=== PATIENT | female | born 1945 | race Caucasian/White ===

== ENCOUNTER 2016-08-10 06:35 | Inpatient (IN) | payer BC, OTHER ==
--- NOTE | ~2016-08-10 | OP ---
Record Of Operation [facility] [address] [place]. [address] NAME: TARAS BENJAMIN : 41 STATUS : ADM IN [facility]#: [id number] AGE: 70 ADM/REG DATE : 08/10/16 MR#: [id number] REPORT SERV DATE: 08/15/16 DICTATED BY: AISHA WELDON DATE: 08/14/16 REPORT STATUS : Draft TRANSCRIBED BY: MODL DATE: 08/14/16 DATE OF PROCEDURE: 08/14/2016 PREOPERATIVE DIAGNOSES: 1. Coronary artery disease with angina. 2. Aortic valve stenosis. 3. Non-ST elevation myocardial infarction. 4. Type 2 insulin-dependent diabetes mellitus. 5. Hypertension. 6. Hyperlipidemia. 7. Obesity, morbid (body mass index greater than 35). 8. Pulmonary hypertension. POSTOPERATIVE DIAGNOSES: 1. Coronary artery disease with angina. 2. Aortic valve stenosis. 3. Non-ST elevation myocardial infarction. 4. Type 2 insulin-dependent diabetes mellitus. 5. Hypertension. 6. Hyperlipidemia. 7. Obesity, morbid (body mass index greater than 35). 8. Pulmonary hypertension. PROCEDURES PERFORMED: 1. Urgent coronary artery bypass grafting x4, left internal mammary artery placed to the left anterior descending, reverse saphenous vein graft placed to the first diagonal, reverse saphenous vein graft placed to the first obtuse marginal, reverse saphenous vein graft placed to the posterolateral branch vessel. 2. Aortic valve replacement using a 21 mm pericardial valve (Trifecta, [place] Miki). 3. Endoscopic vein harvest of the saphenous vein from the right leg. 4. Transesophageal echocardiography. SURGEON: Aisha Weldon M.D. ASSISTANTS: Federico Simmons and Pedro Cardoso. ANESTHESIA: General with Dr. Maharaj. DECATOR OPERATOR: Gamaliel Crane M.D. PRIMARY CARE: Dr. Jose Evans. INDICATIONS: This is a 70-year-old obese, hypertensive female with coronary artery disease, known and diabetes mellitus. She has been cathed in the past, diagnosed with two-vessel coronary disease and managed medically. She has been having recurrent episodes of chest discomfort and unstable like anginal symptoms. She represented to [facility] with Record Of Operation [place] [id number] [place] [place]. [address] NAME: TARAS BENJAMIN : 41 STATUS : ADM IN PAT#: [id number] AGE: 70 ADM/REG DATE : 08/10/16 MR#: [id number] REPORT SERV DATE: 08/15/16 DICTATED BY: AISHA WELDON DATE: 08/14/16 REPORT STATUS : Draft TRANSCRIBED BY: CALIN DATE: 08/14/[address] abnormalities[address] Troponin was elevated and she was admitted to the hospital with a non-ST elevation myocardial infarction. She has a previous history of myocardial infarction in 2016. She was transferred to [facility] and underwent a cardiac catheterization demonstrating significant three-vessel coronary artery disease. Echocardiography demonstrated preserved ventricular function with an ejection fraction of 50%. She did have moderate aortic valve stenosis with insufficiency and mild mitral valve insufficiency. We were asked to see the patient for possible urgent coronary bypass grafting and consideration for aortic valve replacement. We discussed this operation at length with the patient and her family, and after discussion of the operations, its indication, and risks, they wished to proceed. STS predicted mortality of 6%, predicted morbidity mortality of 37% were shared with the family. FINDINGS AT OPERATION: 1. Cross-clamp 132 minutes, total pump time 150 minutes. 2. The LAD was 1.75 mm heavily diseased vessel. A 2.5 mm WANG was anastomosed to it with good runoff. 3. The first diagonal was 1.5 mm and mildly diseased. A 3.5 mm RSVG was anastomosed to it with fair runoff. This was a small target. 4. The first obtuse marginal was 1.75 mm and moderately diseased. A 4 mm RSVG was anastomosed to it with good runoff. 5. The posterolateral branch vessel was 1.5 mm and mildly diseased. A 3.5 mm RSVG was anastomosed to it with good runoff. 6. The vein quality was good and all grafts had good Doppler signal at the end of the case. 7. The aortic valve had three leaflets that were heavily calcified. Coronary anatomy was normal. There was no aortic root dilatation. 8. A 21-mm Trifecta pericardial valve was implanted. A 15 Cor-Knots were used to secure the valve in place. 9. KAEL at the end of the procedure demonstrated good ventricular function. The aortic valve prosthesis was well seated without perivalvular leak, and there was mild mitral valve insufficiency. Pulmonary artery pressures were noted to be elevated in the range of 50-60 mmHg, both before procedure and after procedure. Pathologic specimens include aortic valve leaflets. DESCRIPTION OF PROCEDURE: The patient was brought to the operating suite where general anesthesia was induced and airway secured with an endotracheal tube. Lines secured by Anesthesia, and Petersen catheter was placed. The patient's chest, abdomen, groin, and legs prepped with Hibiclens and ChloraPrep and draped with Ioban sterile sheets. KAEL probe was placed by Anesthesia and examination carried out as discussed above. The saphenous vein was harvested from the right leg using endoscopic technique. Briefly, the vein was cut directly down upon through a 2 cm incision placed at the medial aspect of the right knee. Then, using VasoView trocars, the vessel was dissected from the surrounding subcutaneous tissue and fat. The side branches were identified, ligated, divided with cautery. Once adequate length of vein had been dissected, a counter incision was made up in the groin and in the lower leg. The vein was ligated, divided, and brought through the knee incision. The vein quality was good. The leg was made hemostatic, closed in layers with Record Of Operation [facility] [address] [place]. [address] NAME: TARAS BENJAMIN : 41 STATUS : ADM IN [facility]#: [id number] AGE: 70 ADM/REG DATE : 08/10/16 MR#: [id number] REPORT SERV DATE: 08/15/16 DICTATED BY: AISHA WELDON DATE: 08/14/16 REPORT STATUS : Draft TRANSCRIBED BY: MODL DATE: 08/14/16 absorbable suture, and skin closed in subcuticular fashion. A midline sternal incision was made and the sternum opened with saw. The left hemithorax was elevated and the endothoracic fascia was incised. Side branch of the TODD were clipped and divided. Once the TODD was completely dissected, the patient was anticoagulated with heparin and chest tube placed in the left pleural cavity. The TODD was clipped and divided distally. There was good flow through the TODD and its pedicle was infiltrated with papaverine. Next, the Dwain retractor was placed and the pericardium was opened from the innominate vein, and the diaphragm was T'd and tacked to side of the chest wall. Cannulation pursestring sutures were placed and cannulation was carried out in a routine manner. A retrograde cardioplegia cannula was placed in the coronary sinus. When all was in readiness, the patient was placed on cardiopulmonary bypass. The distal anastomoses were marked out on the heart as described in the findings. Then, a heart support was placed. The aorta was crossclamped and an initial dose of cold blood cardioplegia solution was given in a combination of antegrade and retrograde fashion, and then in a 20- to 25-minute intervals during the remainder of the cross-clamp period. Following the first dose of cardioplegia, the heart was positioned for the obtuse marginal graft. Arteriotomy was made. The vein graft was trimmed and anastomosed to it with 7-0 Prolene. The vein graft was measured back to the left side of the ascending aorta where it was divided. We then positioned the heart for the PDA graft. Arteriotomy was made. The vein graft was trimmed and anastomosed to it with 7-0 Prolene. This vein graft was then measured back to the right side of the ascending aorta where it was divided. Another dose of cardioplegia was given and we positioned the heart for the diagonal graft. Another arteriotomy was made and the vein graft was trimmed and anastomosed to it with 7-0 Prolene. This vein graft was measured back to the left side of the ascending aorta where it was divided. We then positioned the heart for the LAD graft. Arteriotomy was made in the mid LAD. The TODD was brought out of the left chest through a notch in the pericardium over the pulmonary artery. The TODD was opened and anastomosed to the LAD with running suture of 8-0 Prolene. The endothoracic fascia was tacked to the epicardium. Another dose of cardioplegia was given and the heart support was removed. We then turned our attention towards the aortic valve. LV vent was placed through the right superior pulmonary vein and directed into the left ventricle through the mitral valve and secured. A [id number]-[id number] aortotomy incision was made. The aortic valve was inspected. The aortic valve had three leaflets, they were heavily calcified and had restricted motion. The coronary anatomy was normal. The aortic valve leaflets were excised and the annulus debrided of all calcific material. We then irrigated the ascending aorta and left ventricle copiously with iced saline to remove any particulate matter. The valve was then sized and a 21 mm pericardial valve was selected, Saint Miki Trifecta. Interrupted pledgeted sutures of 2-0 Tycron were placed circumferentially about the aortic valve annulus in a horizontal mattress fashion. The pledgets were on the ventricular side. The sutures were passed through the sewing cuff of the valve prosthesis. This was lowered into position and each sutures individually secured and divided using a Cor-Knot device. A total of 15 Cor-Knots were utilized. Record Of Operation [place] [id number] [place]. [address] NAME: TARAS BENJAMIN : 41 STATUS : ADM IN PAT#: [id number] AGE: 70 ADM/REG DATE : 08/10/16 MR#: [id number] REPORT SERV DATE: 08/15/16 DICTATED BY: AISHA WELDON DATE: 08/14/16 REPORT STATUS : Draft TRANSCRIBED BY: CALIN DATE: 08/14/16 Warming was begun. The aortotomy incision was closed in a two-layer fashion with running pledgeted suture of 5-0 Prolene. Then, three 4.5 mm punch aortotomies were made in the proximal ends, all the vein grafts were anastomosed to these sites with running sutures of 6 0 Prolene. The patient was placed in Trendelenburg and a final dose of warm blood cardioplegia was given in a retrograde fashion. Ventricular and atrial pacing wires were placed. Following the last dose of cardioplegia and deairing of the aorta, an aortic cross clamp was removed. The distal and proximal anastomoses were inspected along with suture lines and made hemostatic. Doppler demonstrated good flow through the grafts. The heart was paced in an AV sequential fashion. Ventilation was begun. When the heart demonstrated good contractility, it was allowed to fill and eject. When deairing was completed, the LV vent was removed and these pursestring sutures were tied. The ascending aortic vent was likewise removed and these pursestring sutures tied and reinforced. The patient was then weaned from cardiopulmonary bypass with minimal inotropic support. The venous cannula was removed and these pursestring sutures tied. KAEL examination demonstrated good ventricular function. The aortic valve prosthesis was well seated. There was mild mitral valve insufficiency. Protamine was then administered by Anesthesia, and following a period of hemodynamic stability, the aortic cannula was removed and these pursestring sutures tied and reinforced. The patient continued to do well and chest irrigated copiously with saline. Meticulous hemostasis was obtained. Hemasorb was placed along the cut edge of the sternum. Once hemostasis was assured, the pericardium was draped over the anterior surface of heart and tacked into position. Doppler demonstrated good flow through the grafts following protamine administration. Then, the chest tubes were placed and sternum reapproximated with eight sternal wires. The clavipectoral fascia and linea alba closed with #1 Stratafix. The subcutaneous tissue was closed with Stratafix and the skin closed in a subcuticular fashion. The patient tolerated the procedure well. There were no complications. Sponge and needle counts were correct. DISPOSITION: The patient was left intubated, sedated, and transported to the Intensive Care Unit in stable condition. DAYRON/CALIN Aisha Weldon M.D. Record Of [address] [address] NAME: TARAS BENJAMIN : 41 STATUS : ADM IN [facility]#: [id number] AGE: 70 ADM/REG DATE : 08/10/16 MR#: [id number] REPORT SERV DATE: 08/15/16 DICTATED BY: AISHA WELDON DATE: 08/14/16 REPORT STATUS : Draft TRANSCRIBED BY: CALIN DATE: 08/14/16 / [id number] CC: MD Gamaliel Torres M.D.
--- NOTE | ~2016-08-10 | DS ---
Discharge Summary [facility] [address] [place]. [address] NAME: TARAS BENJAMIN : 41 STATUS : DIS IN PAT#: [id number] AGE: 70 ADM/REG DATE : 08/10/16 MR#: [id number] REPORT SERV DATE: 08/25/16 DICTATED BY: ADY HILARIO DATE: 08/24/16 REPORT STATUS : Draft TRANSCRIBED BY: MODL DATE: 08/24/16 ADMISSION DATE: 08/10/2016 DISCHARGE DATE: 08/24/2016 DISCHARGE DIAGNOSES: Include: 1. [id number] myocardial infarction, coronary artery disease, aortic stenosis. 2. Acute kidney injury on chronic kidney disease, stage III. Most recent creatinine, however 1.05. 3. Atrial fibrillation, on chronic Coumadin therapy with most recent INR 2.4. 4. Partial right jugular clot. 5. Hypernatremia, resolving, most recent sodium 146. 6. Urinary tract infection. Culture showing Enterococcus. 7. Diabetes type 2, most recent hemoglobin A1c 7.5. 8. Hyperlipidemia. 9. Hypertension. 10.Obesity. 11.History of esophageal strictures and dilations. 12.Some nausea and vomiting and difficulty swallowing. 13.Macroglossia, which is improving. DISCHARGE MEDICINES: Are as follows: Amoxicillin 875 mg p.o. twice a day, last dose tonight on 08/24/2016; vitamin C 1000 mg twice a day; aspirin 81 mg daily; Lipitor 40 mg at bedtime; amiodarone 200 mg daily; Coreg 25 mg twice a day; Senokot two tabs p.o. twice a day; Coumadin 1 mg daily, PT and INR in the a.m.; glipizide 10 mg twice a day; insulin 70/30, regular 20 units twice a day; nitroglycerin sublingual tablets p.r.n. for chest pain; Paxil 20 mg daily; Lasix 20 mg daily. HISTORY OF PRESENT ILLNESS: This is a 70-year-old female, who originally presented to [facility] Emergency Department with complaints of chest pressure. Please see the initial H and P of Mariela Irizarry nurse practitioner at [facility] on 08/08/2016. The patient was admitted to the Hospitalist Service for further evaluation and treatment. Please see the discharge summary by TYRONE Santo. The patient was transferred to [facility] for heart catheterization, and she underwent her heart catheterization on 08/10/2016, showing multivessel coronary disease and mild to moderate aortic stenosis. CONSULTANTS DURING THIS ADMISSION: Include cardiothoracic surgery, Agustin Weldon M.D. and nurse practitioner, Ej Abbott. She underwent coronary artery bypass grafting on 08/14/2016. CONTINUATION OF HOSPITAL COURSE: The patient was followed and plan was for the above described coronary artery bypass grafting and aortic valve replacement. Adjustments were made to her insulin regimen to help control her blood sugars and also adjustments were made to help control her blood pressures as well. She remained afebrile, was chest pain free and did undergo the above described surgery and was recovered in the CVICU postoperatively. She was eventually transferred out of the CVICU on 08/17/2016, and hospitalist care was assumed Discharge Summary [address] [address] NAME: TARAS BENJAMIN : 41 STATUS : DIS IN PAT#: [id number] AGE: 70 ADM/REG DATE : 08/10/16 MR#: [id number] REPORT SERV DATE: 08/25/16 DICTATED BY: ADY HILARIO DATE: 08/24/16 REPORT STATUS : Draft TRANSCRIBED BY: CALIN DATE: 08/24/16 by myself beginning on 08/18/2016. In the postoperative course, she did have a postoperative respiratory failure and was intubated through 08/14/2016 to 08/17/2016. I began seeing the patient as stated, on 08/18/2016, where we were continuing aggressive pulmonary toilet and mobilization efforts. She was feeling reasonable and recovering from her surgery. With a slight elevation in her white blood cells and a UA was checked, she did have some pyuria and culture was obtained. Adjustments were made to her Coreg dosage to help control her blood pressure. She was started on Coumadin therapy given her St. Miki aortic valve and lab work was followed closely. She was seen by Physical Therapy and evaluation was done, who recommended inpatient rehab at discharge. She has had good rate control of her AFib and with Coumadin dosing, her INR titrated up nicely. She was given antibiotic treatment for her urinary tract infection, will be completing that today. She has had some slight difficulty with her swallowing, which is more of a chronic issue given her esophageal strictures and both Physical Therapy and Speech Therapy will be following up with the patient after discharge at her facility in [place]. She continued to improve, was able to ambulate in the room, feeling okay, and was felt safe for discharge on 08/24/2016, with the above described medication regimen and she will follow up with Dr. Crane, compound coating machine offbearer 09/15/2016, and she was transferred to [facility] for continued rehab. She will also follow up with her primary care, Dr. Evans in 3 to 5 weeks and has a tentative appointment for 09/16/2016 scheduled. Questions were answered at bedside at length with the patient. Please note greater than 30 minutes was spent on this discharge for medication teaching, followup planning, and further disposition. CSC/MODL Ady Hilario NP / [id number] CC: Ruslan Campuzano FREDRICK S
--- NOTE | ~2016-08-10 | CN ---
Consultation Report [place] [id number] [facility] [place]. [address] NAME: TARAS BENJAMIN : 41 STATUS : REG REF PAT#: [id number] AGE: 70 ADM/REG DATE : 08/10/16 MR#: [id number] REPORT SERV DATE: 08/10/16 DICTATED BY: EJ SULLIVAN DATE: 08/10/16 REPORT STATUS : Draft TRANSCRIBED BY: MODL DATE: 08/10/16 CONSULTATION DATE OF CONSULTATION: 08/10/2016 REASON FOR CONSULTATION: Recent acute coronary syndrome, three-vessel coronary artery disease, consideration for coronary artery bypass grafting plus or minus aortic valve replacement. CHIEF COMPLAINT: "I had chest pain." HISTORY OF PRESENT ILLNESS: This is a 70-year-old female with known coronary artery disease, followed by Dr. Crane and treated medically since her myocardial infarction in January 2016. She has had some recent medication changes apparently by her nurse practitioner. She reports that over the last two weeks, she has had chest discomfort which she experiences of a heaviness in her chest and shortness of breath. She has reportedly had the symptoms over the last two weeks, and had worsening symptoms on Wednesday morning. She has been taking 1 to 3 nitroglycerin sublingual tablets and usually has relief of her pain within five minutes, but did not on Wednesday. She came to the emergency room and had abnormal EKG and elevated troponin I, was hospitalized and underwent further evaluation by Cardiology. This included coronary arteriogram today which showed significant flow-limiting three-vessel coronary artery disease. We are asked to see for possible coronary artery bypass grafting. Currently, she is pain free. She has been on Plavix. She has type 2 insulin-dependent diabetes mellitus and also has been suffering with which she calls enlarged tongue and dysphagia with reflux. She has had previous dilations over esophagus to address some of these problems. PRIOR MEDICAL HISTORY: 1. Hypertension. 2. Hyperlipidemia. 3. Prior myocardial infarction. 4. Coronary artery disease. 5. Type 2 insulin-dependent diabetes mellitus. 6. Back pain. 7. Esophageal stenosis. 8. Aortic stenosis/aortic insufficiency. 9. Cataracts. 10.Prior ovarian cancer with resection in 1983. PRIOR SURGICAL HISTORY: Significant for: 1. EGD with esophageal dilation. 2. Appendectomy. 3. Cholecystectomy. Consultation Report [place] [id number] [facility] [place]. [address] NAME: TARAS BENJAMIN : 41 STATUS : REG REF PAT#: [id number] AGE: 70 ADM/REG DATE : 08/10/16 MR#: [id number] REPORT SERV DATE: 08/10/16 DICTATED BY: EJ SULLIVAN DATE: 08/10/16 REPORT STATUS : Draft TRANSCRIBED BY: MODJayson DATE: 08/10/16 4. History of salpingo-oophorectomy. 5. Cataract excision. 6. Prior colonoscopy. 7. Prior coronary arteriogram. 8. Carpal tunnel release bilaterally. ALLERGIES: INCLUDE LISINOPRIL, WHICH CAUSES TONGUE SWELLING AND PAXIL, WHICH CAUSES HER TO HAVE EXTRAPYRAMIDAL SYMPTOMS. FAMILY HISTORY: Significant for coronary artery disease in her brother who had bypass surgery, father with a stroke, mother with cancer. SOCIAL HISTORY: She is for 52 years, resides near [facility] with her . She has secondhand smoke exposure for about 40 years. She denies use of alcohol or illicit drugs. MEDICATIONS: Include metoprolol, Plavix, aspirin, meloxicam, glipizide 70/30 insulin, sublingual nitroglycerin, Lasix, and prior use of Paxil, stopped due to side effects. REVIEW OF SYSTEMS: GENERAL: Negative for any recent weight change, fevers, chills, night sweats. ENT: Positive for wearing glasses, cataracts, negative for glaucoma. Positive for dysphagia, enlarge tongue, and EPS symptoms. NECK AND BACK: Positive for back pain. RESPIRATORY: Negative for COPD. Negative for wheezing. Negative for hemoptysis or shortness of breath. CV: Prior myocardial infarction, chest pain, and heart murmur. GI: Positive for "stomach problems", dysphagia, previous esophageal dilatations by Dr. Lakhani. : Negative. [employer]: As above. MUSCULOSKELETAL: Positive for back pain and arthritis. HEME/ONC: Positive for easy bruising since she has been on Plavix and aspirin, negative for free bleeding or blood clots. Positive for prior ovarian cancer with no recurrence. NEUROLOGIC: Negative for stroke or TIA. Otherwise, negative as above. PHYSICAL EXAMINATION: GENERAL: She is a pleasant, obese white female, in no acute distress. Her height is 160.02 cm, weight 91.626 kg. VITAL SIGNS: Blood pressure is 110/55, temperature 98.6, pulse 78 and regular, respirations 18, saturation 98% on 2 liters nasal cannula. HEENT: Normocephalic, atraumatic. Pupils equal, round, reactive to light and accommodation. Sclerae clear. Conjunctivae pink. No xanthelasma. Oral and buccal mucosa pink and moist. Tongue is full, and she has Mallampati class 4 airway. She has upper dentures. NECK: Supple. No restricted range of motion. No carotid bruits. No jugular venous Consultation Report [place] [id number] [facility] [place]. [address] NAME: TARAS BENJAMIN : 41 STATUS : REG REF PAT#: [id number] AGE: 70 ADM/REG DATE : 08/10/16 MR#: [id number] REPORT SERV DATE: 08/10/16 DICTATED BY: EJ SULLIVAN DATE: 08/10/16 REPORT STATUS : Draft TRANSCRIBED BY: CALIN DATE: 08/10/16 distention. CHEST: Clear to auscultation, no use of accessory muscles, no chest wall tenderness. She has mild thoracic kyphosis. No wheezes or adventitious breath sounds. CV: Regular rate and rhythm with aortic systolic murmur, chest palpable and symmetric central peripheral pulses. No clubbing. No cyanosis. ABDOMEN: Soft, obese, nontender with normoactive bowel sounds. No hepatosplenomegaly. /RECTAL: Declined. MUSCULOSKELETAL: Mild to moderate thoracic kyphosis. SKIN, HAIR, AND NAILS: No lesions, masses, or rashes. NEUROLOGIC: She is alert and oriented to day, date, place, and situation. Speech is clear and fluent. No focal deficits. DATA: Coronary arteriogram today shows significant flow-limiting disease in the distal right coronary artery, the proximal, the mid left anterior descending, diagonal branch, and obtuse marginal. Echocardiogram is currently pending for current ejection fraction. The prior echo showed moderate aortic stenosis. EKG shows a sinus rhythm with Q-waves in the septal leads, and ST-T wave changes in the anterior lateral leads and inferior leads. CURRENT LABORATORY DATA: Sodium is 144, potassium 4.3, chloride 109, CO2 of 29, BUN 27, creatinine 1.39. Her lipid profile shows total cholesterol elevated at 201, HDL is low at 38, LDL is 88, and triglycerides elevated at 377. Troponin I was elevated at 0.08. Her CBC is unremarkable. A1c is elevated at 7.3. IMPRESSION: Three-vessel flow-limiting coronary artery disease in a 70-year-old obese white female, diabetic with recent non-ST elevation myocardial infarction. We were asked to see for possible coronary artery bypass grafting, and possible aortic valve replacement depending on results of her echocardiography. We will do risk scoring after we obtain the results of her echocardiography. We appreciate the opportunity to participate in her care and we will follow. CASA/CALIN Ej Sullivan NShuP. / [id number] CC: Jade Yeager M.D.
[~2016-08-10 06:35] MED LIST: ALEVE220 MG PO; ASAB PO; B121000P IM/SC; CELEXA20 PO; CINNAMONPO PO; GLUCOTRO10 PO; HUMULIN SC; HYDROCHLOROT25 MG PO; ICY HOT16 % TOP; INSNOV7030 SC; INSULIN SC; L20 PO; LIPITOR40 PO; LOP100 PO; METOPROLOL 100 MG PO; MOBIC15 MG PO; NORV5 PO; NTG150 SL; OTC SINUS MED; PAX20 PO; PLAVIX PO; PRILOSEC40 MG PO; PROTONIX PO; QUESTRAN4 GM; REG PO; TOPXL100 PO; VITAMIN B-12 OTC PO; VITAMIN B-121000 MC1 SL; WELCHOL 625 MG625 MG PO; X5 PO
[2016-08-11 05:27] LABS: BASOPHILS 0.2 %; BASOPHILS ABSOLUTE 0.01 10/3/uL (0.0-0.16); EOSINOPHILS 1.1 %; EOSINOPHILS ABSOLUTE 0.07 10/3/uL (0.0-0.53); HEMATOCRIT 41.3 % (36.0-48.0); HEMOGLOBIN 13.2 g/dL (12.0-16.0); IMMATURE GRANULOCYTES 0.3 %; IMMATURE GRANULOCYTES ABSOLUTE 0.02 10/3/uL (0.0-0.11); LYMPHOCYTES 19.3 %; LYMPHOCYTES ABSOLUTE 1.18 10/3/uL (0.67-4.30); MEAN CORPUSCULAR HEMOGLOB 27.4 pg (26.0-34.0); MEAN CORPUSCULAR VOLUME 85.9 fL (80-100); MEAN PLATELET VOLUME 12.1 fL (9.2-13.0); MONOCYTES 7.9 %; MONOCYTES ABSOLUTE 0.48 10/3/uL (0.21-1.20); NEUTROPHILS 71.2 %; NEUTROPHILS ABSOLUTE 4.35 10/3/uL (2.02-8.40); PLATELET COUNT 128 10/3/uL (150-400); RBC DISTRIBUTION WIDTH 15.5 % (12.0-16.0); RED CELL COUNT 4.81 10/6/uL (4.0-5.6); WHITE BLOOD CELLS 6.1 10/3/uL (4.5-10.5)
[2016-08-11 05:28] LABS: MANUAL DIFF NO %
[2016-08-11 05:45] LABS: CALCIUM, SERUM 8.3 MG/DL (8.5-10.4); CHLORIDE, SERUM 106 MMOL/L (96-112); CO2 (CARBON DIOXIDE) 29 MMOL/L (24-34); CREATININE 1.28 MG/DL (0.55-1.02); GFR AFRICAN AMERICAN 48 ML/MIN (>=60); GFR NON AFRICAN AMERICAN 42 ML/MIN (>=60); GLUCOSE, SERUM 199 MG/DL (60-99); POTASSIUM, SERUM 4.2 MMOL/L (3.5-5.3); SODIUM, SERUM 142 MMOL/L (135-148)
[2016-08-11 05:52] LABS: BUN (BLOOD UREA NITROGEN) 23 MG/DL (6-23)
[2016-08-12 04:16] LABS: BASOPHILS 0.2 %; BASOPHILS ABSOLUTE 0.01 10/3/uL (0.0-0.16); EOSINOPHILS 3.6 %; EOSINOPHILS ABSOLUTE 0.18 10/3/uL (0.0-0.53); HEMATOCRIT 37.3 % (36.0-48.0); IMMATURE GRANULOCYTES 0.4 %; IMMATURE GRANULOCYTES ABSOLUTE 0.02 10/3/uL (0.0-0.11); LYMPHOCYTES 22.2 %; LYMPHOCYTES ABSOLUTE 1.12 10/3/uL (0.67-4.30); MEAN CORPUS HGB CONC 32.2 g/dL (32.0-36.0); MEAN CORPUSCULAR HEMOGLOB 27.3 pg (26.0-34.0); MEAN CORPUSCULAR VOLUME 84.8 fL (80-100); MEAN PLATELET VOLUME 11.7 fL (9.2-13.0); MONOCYTES 6.9 %; MONOCYTES ABSOLUTE 0.35 10/3/uL (0.21-1.20); NEUTROPHILS 66.7 %; NEUTROPHILS ABSOLUTE 3.37 10/3/uL (2.02-8.40); PLATELET COUNT 95 10/3/uL (150-400); RBC DISTRIBUTION WIDTH 15.3 % (12.0-16.0); WHITE BLOOD CELLS 5.1 10/3/uL (4.5-10.5)
[2016-08-12 04:18] LABS: MANUAL DIFF NO %
[2016-08-12 12:11] LABS: ALBUMIN 2.6 G/DL (3.5-5.0); CALCIUM, SERUM 8.2 MG/DL (8.5-10.4); CHLORIDE, SERUM 103 MMOL/L (96-112); CO2 (CARBON DIOXIDE) 32 MMOL/L (24-34); CREATININE 1.19 MG/DL (0.55-1.02); FREE T4 0.89 NG/DL (0.76-1.46); GFR AFRICAN AMERICAN 53 ML/MIN (>=60); GFR NON AFRICAN AMERICAN 46 ML/MIN (>=60); GLUCOSE, SERUM 179 MG/DL (60-99); POTASSIUM, SERUM 3.7 MMOL/L (3.5-5.3); SODIUM, SERUM 141 MMOL/L (135-148)
[2016-08-12 12:12] LABS: BUN (BLOOD UREA NITROGEN) 28 MG/DL (6-23)
[2016-08-12 16:42] LABS: BASOPHILS 0.2 %; BASOPHILS ABSOLUTE 0.01 10/3/uL (0.0-0.16); EOSINOPHILS 2.8 %; EOSINOPHILS ABSOLUTE 0.15 10/3/uL (0.0-0.53); HEMATOCRIT 37.6 % (36.0-48.0); HEMOGLOBIN 12.1 g/dL (12.0-16.0); IMMATURE GRANULOCYTES 0.2 %; IMMATURE GRANULOCYTES ABSOLUTE 0.01 10/3/uL (0.0-0.11); LYMPHOCYTES 18.2 %; LYMPHOCYTES ABSOLUTE 0.99 10/3/uL (0.67-4.30); MANUAL DIFF NO %; MEAN CORPUS HGB CONC 32.2 g/dL (32.0-36.0); MEAN CORPUSCULAR HEMOGLOB 27.4 pg (26.0-34.0); MEAN CORPUSCULAR VOLUME 85.1 fL (80-100); MEAN PLATELET VOLUME 11.9 fL (9.2-13.0); MONOCYTES 6.6 %; MONOCYTES ABSOLUTE 0.36 10/3/uL (0.21-1.20); NEUTROPHILS ABSOLUTE 3.92 10/3/uL (2.02-8.40); PLATELET COUNT 145 10/3/uL (150-400); RBC DISTRIBUTION WIDTH 15.4 % (12.0-16.0); RED CELL COUNT 4.42 10/6/uL (4.0-5.6); WHITE BLOOD CELLS 5.4 10/3/uL (4.5-10.5)
[2016-08-12 16:57] LABS: ALBUMIN 2.8 G/DL (3.5-5.0); BUN (BLOOD UREA NITROGEN) 29 MG/DL (6-23); CALCIUM, SERUM 8.8 MG/DL (8.5-10.4); CHLORIDE, SERUM 105 MMOL/L (96-112); CO2 (CARBON DIOXIDE) 32 MMOL/L (24-34); CREATININE 1.19 MG/DL (0.55-1.02); GFR AFRICAN AMERICAN 53 ML/MIN (>=60); GFR NON AFRICAN AMERICAN 46 ML/MIN (>=60); GLUCOSE, SERUM 161 MG/DL (60-99); PHOSPHORUS, SERUM 2.1 MG/DL (2.5-4.5); POTASSIUM, SERUM 3.9 MMOL/L (3.5-5.3); SODIUM, SERUM 144 MMOL/L (135-148)
[2016-08-13 14:23] LABS: BASOPHILS 0.2 %; BASOPHILS ABSOLUTE 0.01 10/3/uL (0.0-0.16); EOSINOPHILS 3.5 %; EOSINOPHILS ABSOLUTE 0.17 10/3/uL (0.0-0.53); HEMATOCRIT 37.2 % (36.0-48.0); HEMOGLOBIN 11.9 g/dL (12.0-16.0); IMMATURE GRANULOCYTES 0.2 %; IMMATURE GRANULOCYTES ABSOLUTE 0.01 10/3/uL (0.0-0.11); LYMPHOCYTES 18.1 %; LYMPHOCYTES ABSOLUTE 0.87 10/3/uL (0.67-4.30); MEAN CORPUSCULAR HEMOGLOB 27.3 pg (26.0-34.0); MEAN CORPUSCULAR VOLUME 85.3 fL (80-100); MEAN PLATELET VOLUME 11.6 fL (9.2-13.0); MONOCYTES 6.9 %; MONOCYTES ABSOLUTE 0.33 10/3/uL (0.21-1.20); NEUTROPHILS 71.1 %; NEUTROPHILS ABSOLUTE 3.41 10/3/uL (2.02-8.40); PLATELET COUNT 151 10/3/uL (150-400); RBC DISTRIBUTION WIDTH 15.2 % (12.0-16.0); RED CELL COUNT 4.36 10/6/uL (4.0-5.6); WHITE BLOOD CELLS 4.8 10/3/uL (4.5-10.5)
[2016-08-13 14:24] LABS: MANUAL DIFF NO %
[2016-08-14 04:54] LABS: BASOPHILS 0.2 %; BASOPHILS ABSOLUTE 0.01 10/3/uL (0.0-0.16); EOSINOPHILS 3.1 %; EOSINOPHILS ABSOLUTE 0.14 10/3/uL (0.0-0.53); HEMATOCRIT 37.9 % (36.0-48.0); HEMOGLOBIN 12.3 g/dL (12.0-16.0); IMMATURE GRANULOCYTES 0.4 %; IMMATURE GRANULOCYTES ABSOLUTE 0.02 10/3/uL (0.0-0.11); LYMPHOCYTES 24.8 %; LYMPHOCYTES ABSOLUTE 1.14 10/3/uL (0.67-4.30); MEAN CORPUS HGB CONC 32.5 g/dL (32.0-36.0); MEAN CORPUSCULAR HEMOGLOB 27.4 pg (26.0-34.0); MEAN CORPUSCULAR VOLUME 84.4 fL (80-100); MEAN PLATELET VOLUME 11.9 fL (9.2-13.0); MONOCYTES 8.3 %; MONOCYTES ABSOLUTE 0.38 10/3/uL (0.21-1.20); NEUTROPHILS 63.2 %; PLATELET COUNT 164 10/3/uL (150-400); RED CELL COUNT 4.49 10/6/uL (4.0-5.6); WHITE BLOOD CELLS 4.6 10/3/uL (4.5-10.5)
[2016-08-14 05:04] LABS: % IRON SAT 18 % (20-50); A/G RATIO 0.7 (0.7-1.9); ALBUMIN 2.7 G/DL (3.5-5.0); ALKALINE PHOSPHATASE 68 U/L (45-117); BUN (BLOOD UREA NITROGEN) 30 MG/DL (6-23); CALCIUM, SERUM 8.7 MG/DL (8.5-10.4); CHLORIDE, SERUM 106 MMOL/L (96-112); CO2 (CARBON DIOXIDE) 31 MMOL/L (24-34); CREATININE 1.31 MG/DL (0.55-1.02); GFR AFRICAN AMERICAN 47 ML/MIN (>=60); GFR NON AFRICAN AMERICAN 41 ML/MIN (>=60); GLOBULIN 3.9 G/DL (2.5-4.1); GLUCOSE, SERUM 169 MG/DL (60-99); IRON BINDING CAPACITY 272 MCG/DL (225-410); IRON, SERUM 49 MCG/DL (35-150); POTASSIUM, SERUM 3.8 MMOL/L (3.5-5.3); SGOT(AST) 19 U/L (5-40); SGPT(ALT) 21 U/L (5-65); SODIUM, SERUM 146 MMOL/L (135-148); TOTAL BILIRUBIN 0.4 MG/DL (0-1.2); TOTAL PROTEIN 6.6 G/DL (6.0-8.5)
[2016-08-14 05:09] LABS: MANUAL DIFF NO %
[2016-08-14 05:16] LABS: INTERNATIONAL NORMAL RATI 1.1 UNITS (-); PROTIME (NOT ORD) 13.8 SEC (12.0-14.5)
[2016-08-14 07:23] LABS: TEG - RATE 6.3 MIN (5.0-10.0)
[2016-08-14 07:24] LABS: MAX AMP (ADP) 45.4 MM (35-68); TEG - ANGLE 63.7 DEG (53-72); TEG - COAGULATION INDEX -0.3 (-3 TO 3); TEG - MAXIMUM AMPLITUDE 61.2 MM (50-70); TEG PLAVIX/EFFIENT/TICLID(ADP) 32.5 % INHIB (< 40)
[2016-08-14 16:06] LABS: BE (BASE EXCESS) -3.8 MEQ/L (0 +/- 2.5); CARBOXYHEMOGLOBIN 0.4 % (0-3); HCO3 (ACTUAL BICARBONATE) 22.8 MEQ/L (23-27); HEMOBLOGIN CONTENT 13.1 G/DL (12-16); INSTRUMENT SERIAL # 11843; METHEMOGLOBIN 0.6 % (0-3); MODE SIMV; OPERATOR ID 35188; PCO2 (CO2 TENSION) 47 MMHG (35-45); PO2 (O2 TENSION) 135 MMHG (79-93); SAMPLE Arterial; TIDAL VOLUME 650 ML
[2016-08-14 16:44] LABS: HEMATOCRIT 36.8 % (36.0-48.0); HEMOGLOBIN 12.2 g/dL (12.0-16.0); PLATELET COUNT 125 10/3/uL (150-400)
[2016-08-14 16:52] LABS: INTERNATIONAL NORMAL RATI 1.6 UNITS (-); PARTIAL THROMBO TIME 36.2 SEC (22.5-37.2)
[2016-08-14 16:53] LABS: PROTIME (NOT ORD) 18.5 SEC (12.0-14.5)
[2016-08-14 16:55] LABS: BUN (BLOOD UREA NITROGEN) 28 MG/DL (6-23); CALCIUM, SERUM 9.2 MG/DL (8.5-10.4); CHLORIDE, SERUM 112 MMOL/L (96-112); CO2 (CARBON DIOXIDE) 25 MMOL/L (24-34); CREATININE 1.52 MG/DL (0.55-1.02); GFR AFRICAN AMERICAN 39 ML/MIN (>=60); GFR NON AFRICAN AMERICAN 34 ML/MIN (>=60); GLUCOSE, SERUM 122 MG/DL (60-99); POTASSIUM, SERUM 4.2 MMOL/L (3.5-5.3); SODIUM, SERUM 149 MMOL/L (135-148)
[2016-08-14 20:31] LABS: BASOPHILS 0.1 %; BASOPHILS ABSOLUTE 0.01 10/3/uL (0.0-0.16); EOSINOPHILS 0.1 %; EOSINOPHILS ABSOLUTE 0.01 10/3/uL (0.0-0.53); HEMATOCRIT 33.2 % (36.0-48.0); HEMOGLOBIN 10.9 g/dL (12.0-16.0); IMMATURE GRANULOCYTES 0.1 %; IMMATURE GRANULOCYTES ABSOLUTE 0.01 10/3/uL (0.0-0.11); LYMPHOCYTES 8.8 %; LYMPHOCYTES ABSOLUTE 0.64 10/3/uL (0.67-4.30); MEAN CORPUS HGB CONC 32.8 g/dL (32.0-36.0); MEAN CORPUSCULAR HEMOGLOB 27.5 pg (26.0-34.0); MEAN CORPUSCULAR VOLUME 83.6 fL (80-100); MEAN PLATELET VOLUME 11.6 fL (9.2-13.0); MONOCYTES 4.3 %; MONOCYTES ABSOLUTE 0.31 10/3/uL (0.21-1.20); NEUTROPHILS 86.6 %; NEUTROPHILS ABSOLUTE 6.31 10/3/uL (2.02-8.40); PLATELET COUNT 93 10/3/uL (150-400); RBC DISTRIBUTION WIDTH 15.3 % (12.0-16.0); RED CELL COUNT 3.97 10/6/uL (4.0-5.6)
[2016-08-14 20:32] LABS: MANUAL DIFF NO %; WHITE BLOOD CELLS 7.3 10/3/uL (4.5-10.5)
[2016-08-14 20:42] LABS: BUN (BLOOD UREA NITROGEN) 28 MG/DL (6-23); CALCIUM, SERUM 8.7 MG/DL (8.5-10.4); CHLORIDE, SERUM 114 MMOL/L (96-112); CO2 (CARBON DIOXIDE) 24 MMOL/L (24-34); CREATININE 1.62 MG/DL (0.55-1.02); GFR AFRICAN AMERICAN 36 ML/MIN (>=60); GFR NON AFRICAN AMERICAN 31 ML/MIN (>=60); GLUCOSE, SERUM 126 MG/DL (60-99); POTASSIUM, SERUM 4.1 MMOL/L (3.5-5.3); SODIUM, SERUM 149 MMOL/L (135-148)
[2016-08-15 02:32] LABS: BASOPHILS 0 %; EOSINOPHILS 0 %; HEMATOCRIT 31.7 % (36.0-48.0); HEMOGLOBIN 10.6 g/dL (12.0-16.0); IMMATURE GRANULOCYTES 0.2 %; IMMATURE GRANULOCYTES ABSOLUTE 0.01 10/3/uL (0.0-0.11); LYMPHOCYTES 7.8 %; LYMPHOCYTES ABSOLUTE 0.46 10/3/uL (0.67-4.30); MANUAL DIFF NO %; MEAN CORPUS HGB CONC 33.4 g/dL (32.0-36.0); MEAN CORPUSCULAR HEMOGLOB 27.8 pg (26.0-34.0); MEAN CORPUSCULAR VOLUME 83.2 fL (80-100); MONOCYTES 4.4 %; MONOCYTES ABSOLUTE 0.26 10/3/uL (0.21-1.20); NEUTROPHILS 87.6 %; NEUTROPHILS ABSOLUTE 5.18 10/3/uL (2.02-8.40); PLATELET COUNT 78 10/3/uL (150-400); RBC DISTRIBUTION WIDTH 15.4 % (12.0-16.0); RED CELL COUNT 3.81 10/6/uL (4.0-5.6); WHITE BLOOD CELLS 5.9 10/3/uL (4.5-10.5)
[2016-08-15 02:38] LABS: INTERNATIONAL NORMAL RATI 1.3 UNITS (-); PROTIME (NOT ORD) 15.8 SEC (12.0-14.5)
[2016-08-15 02:43] LABS: BUN (BLOOD UREA NITROGEN) 28 MG/DL (6-23); CALCIUM, SERUM 8.2 MG/DL (8.5-10.4); CHLORIDE, SERUM 115 MMOL/L (96-112); CO2 (CARBON DIOXIDE) 23 MMOL/L (24-34); CREATININE 1.56 MG/DL (0.55-1.02); GFR AFRICAN AMERICAN 38 ML/MIN (>=60); GFR NON AFRICAN AMERICAN 33 ML/MIN (>=60); POTASSIUM, SERUM 4.2 MMOL/L (3.5-5.3); SODIUM, SERUM 150 MMOL/L (135-148)
[2016-08-15 02:44] LABS: GLUCOSE, SERUM 85 MG/DL (60-99)
[2016-08-15 02:53] LABS: PLATELET ESTIMATE DEC (ADEQUATE); RBC MORPHOLOGY NORM (NORMAL)
[2016-08-15 04:00] LABS: PARTIAL THROMBO TIME 33.2 SEC (22.5-37.2)
[2016-08-15 16:22] LABS: HEMATOCRIT 31.5 % (36.0-48.0); HEMOGLOBIN 10.4 g/dL (12.0-16.0)
[2016-08-16 03:40] LABS: BASOPHILS 0 %; EOSINOPHILS 0 %; HEMATOCRIT 30.9 % (36.0-48.0); HEMOGLOBIN 10.2 g/dL (12.0-16.0); IMMATURE GRANULOCYTES 0.3 %; IMMATURE GRANULOCYTES ABSOLUTE 0.02 10/3/uL (0.0-0.11); LYMPHOCYTES 5.7 %; LYMPHOCYTES ABSOLUTE 0.38 10/3/uL (0.67-4.30); MEAN CORPUSCULAR HEMOGLOB 27.8 pg (26.0-34.0); MEAN CORPUSCULAR VOLUME 84.2 fL (80-100); MEAN PLATELET VOLUME 11.8 fL (9.2-13.0); MONOCYTES 7.3 %; MONOCYTES ABSOLUTE 0.49 10/3/uL (0.21-1.20); NEUTROPHILS 86.7 %; NEUTROPHILS ABSOLUTE 5.78 10/3/uL (2.02-8.40); PLATELET COUNT 80 10/3/uL (150-400); RBC DISTRIBUTION WIDTH 15.9 % (12.0-16.0); RED CELL COUNT 3.67 10/6/uL (4.0-5.6); WHITE BLOOD CELLS 6.7 10/3/uL (4.5-10.5)
[2016-08-16 03:48] LABS: BUN (BLOOD UREA NITROGEN) 31 MG/DL (6-23); CHLORIDE, SERUM 116 MMOL/L (96-112); CO2 (CARBON DIOXIDE) 23 MMOL/L (24-34); GFR AFRICAN AMERICAN 43 ML/MIN (>=60); GFR NON AFRICAN AMERICAN 37 ML/MIN (>=60); SODIUM, SERUM 149 MMOL/L (135-148)
[2016-08-16 03:49] LABS: GLUCOSE, SERUM 127 MG/DL (60-99); MANUAL DIFF NO %; POTASSIUM, SERUM 4.4 MMOL/L (3.5-5.3)
[2016-08-16 08:01] LABS: PHOSPHORUS, SERUM 3.8 MG/DL (2.5-4.5)
[2016-08-16 10:46] LABS: OSMOLALITY, URINE 518 MOSM/KG (50-1200)
[2016-08-16 10:47] LABS: SODIUM, URINE 71 MEQ/L
[2016-08-16 16:00] LABS: HEMATOCRIT 28.7 % (36.0-48.0); HEMOGLOBIN 9.4 g/dL (12.0-16.0)
[2016-08-16 16:09] LABS: POTASSIUM, SERUM 4.6 MMOL/L (3.5-5.3)
[2016-08-16 23:40] LABS: HEMATOCRIT 30.3 % (36.0-48.0); HEMOGLOBIN 9.6 g/dL (12.0-16.0)
[2016-08-16 23:50] LABS: CALCIUM, SERUM 7.6 MG/DL (8.5-10.4); CHLORIDE, SERUM 116 MMOL/L (96-112); CO2 (CARBON DIOXIDE) 25 MMOL/L (24-34); CREATININE 1.61 MG/DL (0.55-1.02); GFR AFRICAN AMERICAN 37 ML/MIN (>=60); GFR NON AFRICAN AMERICAN 32 ML/MIN (>=60); GLUCOSE, SERUM 118 MG/DL (60-99); POTASSIUM, SERUM 4.6 MMOL/L (3.5-5.3); SODIUM, SERUM 149 MMOL/L (135-148)
[2016-08-16 23:51] LABS: BUN (BLOOD UREA NITROGEN) 43 MG/DL (6-23)
[2016-08-17 03:57] LABS: BASOPHILS 0 %; EOSINOPHILS 0 %; HEMATOCRIT 29.4 % (36.0-48.0); HEMOGLOBIN 9.5 g/dL (12.0-16.0); IMMATURE GRANULOCYTES 0.5 %; IMMATURE GRANULOCYTES ABSOLUTE 0.04 10/3/uL (0.0-0.11); LYMPHOCYTES 8.7 %; LYMPHOCYTES ABSOLUTE 0.66 10/3/uL (0.67-4.30); MEAN CORPUS HGB CONC 32.3 g/dL (32.0-36.0); MEAN CORPUSCULAR HEMOGLOB 27.4 pg (26.0-34.0); MEAN CORPUSCULAR VOLUME 84.7 fL (80-100); MONOCYTES 8.2 %; MONOCYTES ABSOLUTE 0.62 10/3/uL (0.21-1.20); NEUTROPHILS 82.6 %; NEUTROPHILS ABSOLUTE 6.23 10/3/uL (2.02-8.40); PLATELET COUNT 90 10/3/uL (150-400); RED CELL COUNT 3.47 10/6/uL (4.0-5.6); WHITE BLOOD CELLS 7.6 10/3/uL (4.5-10.5)
[2016-08-17 03:58] LABS: MANUAL DIFF NO %
[2016-08-17 04:13] LABS: ALBUMIN 2.9 G/DL (3.5-5.0); BUN (BLOOD UREA NITROGEN) 41 MG/DL (6-23); CALCIUM, SERUM 7.7 MG/DL (8.5-10.4); CHLORIDE, SERUM 115 MMOL/L (96-112); CO2 (CARBON DIOXIDE) 22 MMOL/L (24-34); GFR AFRICAN AMERICAN 40 ML/MIN (>=60); GFR NON AFRICAN AMERICAN 34 ML/MIN (>=60); GLUCOSE, SERUM 120 MG/DL (60-99); PHOSPHORUS, SERUM 3.9 MG/DL (2.5-4.5); POTASSIUM, SERUM 4.3 MMOL/L (3.5-5.3); SODIUM, SERUM 148 MMOL/L (135-148)
[2016-08-17 14:30] LABS: HEPARIN-INDUCED PLATELET AB NEGATIVE (NEGATIVE); HIT PATIENT O.D. 0.073 OD (0.000-0.299)
[2016-08-17 18:01] LABS: BE (BASE EXCESS) -6.3 MEQ/L (0 +/- 2.5); CARBOXYHEMOGLOBIN 0.3 % (0-3); DEVICE NC; HCO3 (ACTUAL BICARBONATE) 19.2 MEQ/L (23-27); INSTRUMENT SERIAL # 11843; METHEMOGLOBIN 0.5 % (0-3); O2 CONTENT 15.3 VOL% (18-24); PCO2 (CO2 TENSION) 38 MMHG (35-45); PO2 (O2 TENSION) 135 MMHG (79-93); SAMPLE Arterial; pH 7.32 (7.37-7.43)
[2016-08-18 03:32] LABS: HEMOGLOBIN 11.4 g/dL (12.0-16.0); MEAN CORPUS HGB CONC 31.4 g/dL (32.0-36.0); MEAN CORPUSCULAR HEMOGLOB 27.3 pg (26.0-34.0); MEAN CORPUSCULAR VOLUME 87.1 fL (80-100); RBC DISTRIBUTION WIDTH 15.8 % (12.0-16.0)
[2016-08-18 03:34] LABS: HEMATOCRIT 36.3 % (36.0-48.0); MANUAL DIFF YES %; PLATELET COUNT 140 10/3/uL (150-400); RED CELL COUNT 4.17 10/6/uL (4.0-5.6); WHITE BLOOD CELLS 16.4 10/3/uL (4.5-10.5)
[2016-08-18 03:49] LABS: A/G RATIO 1.1 (0.7-1.9); ALBUMIN 3.3 G/DL (3.5-5.0); ALKALINE PHOSPHATASE 72 U/L (45-117); CALCIUM, SERUM 8.3 MG/DL (8.5-10.4); CHLORIDE, SERUM 110 MMOL/L (96-112); CO2 (CARBON DIOXIDE) 25 MMOL/L (24-34); GFR AFRICAN AMERICAN 34 ML/MIN (>=60); GFR NON AFRICAN AMERICAN 30 ML/MIN (>=60); POTASSIUM, SERUM 4.4 MMOL/L (3.5-5.3); SGOT(AST) 32 U/L (5-40); SGPT(ALT) 20 U/L (5-65); SODIUM, SERUM 146 MMOL/L (135-148); TOTAL BILIRUBIN 0.4 MG/DL (0-1.2); TOTAL PROTEIN 6.3 G/DL (6.0-8.5)
[2016-08-18 03:52] LABS: BAND NEUTROPHILS 4 %; EOSINOPHILS 1 %; EOSINOPHILS ABSOLUTE (CALC) 0.16 10/3/uL (0.0-0.53); LYMPHOCYTES 11 %; MONOCYTES 11 %; NEUTROPHILS ABSOLUTE (CALC) 12.63 10/3/uL (2.02-8.40); PLATELET ESTIMATE SLT DEC (ADEQUATE); RBC MORPHOLOGY NORM (NORMAL); SEGMENTED NEUTROPHIL (0) 73 %; TOTAL NUCLEATED CELLS 100
[2016-08-18 03:53] LABS: BUN (BLOOD UREA NITROGEN) 45 MG/DL (6-23); GLUCOSE, SERUM 187 MG/DL (60-99)
[2016-08-18 08:29] LABS: INTERNATIONAL NORMAL RATI 1.3 UNITS (-); PROTIME (NOT ORD) 16.5 SEC (12.0-14.5)
[2016-08-18 21:02] LABS: ASCORBIC ACID (UR NOT ORDER) 40 (NEG); BILIRUBIN, URINE NEGATIVE (NEG); KETONE, URINE NEGATIVE (NEG); LEUKOCYTE ESTERASE(NOT OR MOD (NEG); WBC (NOT ORDERED) (RFLEX) 31 (0-5)
[2016-08-19 06:21] LABS: BASOPHILS 0.2 %; BASOPHILS ABSOLUTE 0.02 10/3/uL (0.0-0.16); EOSINOPHILS 0.5 %; EOSINOPHILS ABSOLUTE 0.05 10/3/uL (0.0-0.53); HEMATOCRIT 33.3 % (36.0-48.0); HEMOGLOBIN 10.5 g/dL (12.0-16.0); IMMATURE GRANULOCYTES 1.5 %; IMMATURE GRANULOCYTES ABSOLUTE 0.15 10/3/uL (0.0-0.11); LYMPHOCYTES 9.3 %; MEAN CORPUS HGB CONC 31.5 g/dL (32.0-36.0); MEAN CORPUSCULAR VOLUME 85.6 fL (80-100); MONOCYTES 10.5 %; MONOCYTES ABSOLUTE 1.02 10/3/uL (0.21-1.20); NEUTROPHILS ABSOLUTE 7.58 10/3/uL (2.02-8.40); PLATELET COUNT 117 10/3/uL (150-400); RBC DISTRIBUTION WIDTH 15.7 % (12.0-16.0); RED CELL COUNT 3.89 10/6/uL (4.0-5.6)
[2016-08-19 06:23] LABS: MANUAL DIFF NO %; WHITE BLOOD CELLS 9.7 10/3/uL (4.5-10.5)
[2016-08-19 06:26] LABS: CALCIUM, SERUM 9.1 MG/DL (8.5-10.4); CHLORIDE, SERUM 109 MMOL/L (96-112); CO2 (CARBON DIOXIDE) 28 MMOL/L (24-34); CREATININE 1.64 MG/DL (0.55-1.02); GFR AFRICAN AMERICAN 36 ML/MIN (>=60); GFR NON AFRICAN AMERICAN 31 ML/MIN (>=60); GLUCOSE, SERUM 160 MG/DL (60-99); POTASSIUM, SERUM 4.1 MMOL/L (3.5-5.3); SODIUM, SERUM 145 MMOL/L (135-148)
[2016-08-19 06:27] LABS: BUN (BLOOD UREA NITROGEN) 51 MG/DL (6-23)
[2016-08-19 10:45] LABS: INTERNATIONAL NORMAL RATI 1.3 UNITS (-); PROTIME (NOT ORD) 15.9 SEC (12.0-14.5)
[2016-08-20 04:21] LABS: BASOPHILS 0.1 %; BASOPHILS ABSOLUTE 0.01 10/3/uL (0.0-0.16); EOSINOPHILS 0.4 %; EOSINOPHILS ABSOLUTE 0.06 10/3/uL (0.0-0.53); HEMATOCRIT 35.5 % (36.0-48.0); HEMOGLOBIN 11.1 g/dL (12.0-16.0); IMMATURE GRANULOCYTES 0.8 %; IMMATURE GRANULOCYTES ABSOLUTE 0.12 10/3/uL (0.0-0.11); LYMPHOCYTES 5.3 %; MEAN CORPUS HGB CONC 31.3 g/dL (32.0-36.0); MEAN CORPUSCULAR HEMOGLOB 26.9 pg (26.0-34.0); MEAN CORPUSCULAR VOLUME 86.2 fL (80-100); MEAN PLATELET VOLUME 11.3 fL (9.2-13.0); MONOCYTES 4.2 %; MONOCYTES ABSOLUTE 0.64 10/3/uL (0.21-1.20); NEUTROPHILS 89.2 %; NEUTROPHILS ABSOLUTE 13.45 10/3/uL (2.02-8.40); RBC DISTRIBUTION WIDTH 15.4 % (12.0-16.0); RED CELL COUNT 4.12 10/6/uL (4.0-5.6)
[2016-08-20 04:22] LABS: MANUAL DIFF NO %; PLATELET COUNT 163 10/3/uL (150-400); WHITE BLOOD CELLS 15.1 10/3/uL (4.5-10.5)
[2016-08-20 04:30] LABS: INTERNATIONAL NORMAL RATI 1.3 UNITS (-); PROTIME (NOT ORD) 15.7 SEC (12.0-14.5)
[2016-08-20 04:38] LABS: A/G RATIO 0.9 (0.7-1.9); ALBUMIN 2.9 G/DL (3.5-5.0); ALKALINE PHOSPHATASE 77 U/L (45-117); BUN (BLOOD UREA NITROGEN) 44 MG/DL (6-23); CALCIUM, SERUM 9.1 MG/DL (8.5-10.4); CHLORIDE, SERUM 112 MMOL/L (96-112); CO2 (CARBON DIOXIDE) 27 MMOL/L (24-34); CREATININE 1.36 MG/DL (0.55-1.02); GFR AFRICAN AMERICAN 45 ML/MIN (>=60); GFR NON AFRICAN AMERICAN 39 ML/MIN (>=60); GLOBULIN 3.3 G/DL (2.5-4.1); GLUCOSE, SERUM 143 MG/DL (60-99); POTASSIUM, SERUM 3.9 MMOL/L (3.5-5.3); SGPT(ALT) 23 U/L (5-65); SODIUM, SERUM 149 MMOL/L (135-148); TOTAL BILIRUBIN 0.5 MG/DL (0-1.2); TOTAL PROTEIN 6.2 G/DL (6.0-8.5)
[2016-08-20 04:39] LABS: SGOT(AST) 30 U/L (5-40)
[2016-08-20 08:58] LABS: INTERNATIONAL NORMAL RATI 1.3 UNITS (-); PROTIME (NOT ORD) 16.4 SEC (12.0-14.5)
[2016-08-21 05:10] LABS: INTERNATIONAL NORMAL RATI 1.6 UNITS (-); PROTIME (NOT ORD) 18.5 SEC (12.0-14.5)
[2016-08-21 05:12] LABS: BUN (BLOOD UREA NITROGEN) 45 MG/DL (6-23); CALCIUM, SERUM 9.3 MG/DL (8.5-10.4); CHLORIDE, SERUM 111 MMOL/L (96-112); CO2 (CARBON DIOXIDE) 31 MMOL/L (24-34); CREATININE 1.42 MG/DL (0.55-1.02); GFR AFRICAN AMERICAN 43 ML/MIN (>=60); GFR NON AFRICAN AMERICAN 37 ML/MIN (>=60); GLUCOSE, SERUM 111 MG/DL (60-99); POTASSIUM, SERUM 3.5 MMOL/L (3.5-5.3); SODIUM, SERUM 151 MMOL/L (135-148)
[2016-08-21 05:14] LABS: BASOPHILS 0.1 %; BASOPHILS ABSOLUTE 0.01 10/3/uL (0.0-0.16); EOSINOPHILS 1.5 %; EOSINOPHILS ABSOLUTE 0.11 10/3/uL (0.0-0.53); IMMATURE GRANULOCYTES 0.5 %; IMMATURE GRANULOCYTES ABSOLUTE 0.04 10/3/uL (0.0-0.11); LYMPHOCYTES 10.2 %; LYMPHOCYTES ABSOLUTE 0.77 10/3/uL (0.67-4.30); MEAN CORPUS HGB CONC 32.3 g/dL (32.0-36.0); MEAN CORPUSCULAR HEMOGLOB 27.5 pg (26.0-34.0); MEAN CORPUSCULAR VOLUME 85.2 fL (80-100); MONOCYTES ABSOLUTE 0.53 10/3/uL (0.21-1.20); NEUTROPHILS 80.7 %; NEUTROPHILS ABSOLUTE 6.09 10/3/uL (2.02-8.40); PLATELET COUNT 125 10/3/uL (150-400); RBC DISTRIBUTION WIDTH 15.4 % (12.0-16.0); RED CELL COUNT 3.64 10/6/uL (4.0-5.6)
[2016-08-21 05:21] LABS: MANUAL DIFF NO %; WHITE BLOOD CELLS 7.6 10/3/uL (4.5-10.5)
[2016-08-21 06:26] LABS: INTACT PTH (ICMA) 48.6 PG/ML (10.0-65.0)
[2016-08-22 05:51] LABS: INTERNATIONAL NORMAL RATI 2.3 UNITS (-)
[2016-08-22 05:54] LABS: CALCIUM, SERUM 8.8 MG/DL (8.5-10.4); CHLORIDE, SERUM 110 MMOL/L (96-112); CO2 (CARBON DIOXIDE) 29 MMOL/L (24-34); GFR AFRICAN AMERICAN 37 ML/MIN (>=60); GFR NON AFRICAN AMERICAN 32 ML/MIN (>=60); POTASSIUM, SERUM 3.6 MMOL/L (3.5-5.3); SODIUM, SERUM 148 MMOL/L (135-148)
[2016-08-22 05:55] LABS: BUN (BLOOD UREA NITROGEN) 51 MG/DL (6-23); GLUCOSE, SERUM 165 MG/DL (60-99)
[2016-08-22 05:58] LABS: PROTIME (NOT ORD) 24.8 SEC (12.0-14.5)
[2016-08-23 08:05] LABS: INTERNATIONAL NORMAL RATI 2.5 UNITS (-)
[2016-08-24 06:12] LABS: CALCIUM, SERUM 8.9 MG/DL (8.5-10.4); CHLORIDE, SERUM 111 MMOL/L (96-112); CO2 (CARBON DIOXIDE) 25 MMOL/L (24-34); POTASSIUM, SERUM 3.5 MMOL/L (3.5-5.3); SODIUM, SERUM 146 MMOL/L (135-148)
[2016-08-24 06:13] LABS: BUN (BLOOD UREA NITROGEN) 29 MG/DL (6-23); CREATININE 1.05 MG/DL (0.55-1.02); GFR AFRICAN AMERICAN 61 ML/MIN (>=60); GFR NON AFRICAN AMERICAN 53 ML/MIN (>=60); GLUCOSE, SERUM 61 MG/DL (60-99)
[2016-08-24 07:26] LABS: INTERNATIONAL NORMAL RATI 2.4 UNITS (-); PROTIME (NOT ORD) 26.2 SEC (12.0-14.5)
[2016-08-24 08:24] LABS: BASOPHILS 0 %; EOSINOPHILS 1.7 %; EOSINOPHILS ABSOLUTE 0.12 10/3/uL (0.0-0.53); HEMATOCRIT 29.6 % (36.0-48.0); HEMOGLOBIN 9.5 g/dL (12.0-16.0); IMMATURE GRANULOCYTES 0.4 %; IMMATURE GRANULOCYTES ABSOLUTE 0.03 10/3/uL (0.0-0.11); LYMPHOCYTES 10.6 %; LYMPHOCYTES ABSOLUTE 0.75 10/3/uL (0.67-4.30); MANUAL DIFF NO %; MEAN CORPUS HGB CONC 32.1 g/dL (32.0-36.0); MEAN CORPUSCULAR HEMOGLOB 27.2 pg (26.0-34.0); MEAN CORPUSCULAR VOLUME 84.8 fL (80-100); MEAN PLATELET VOLUME 10.9 fL (9.2-13.0); MONOCYTES 8.2 %; MONOCYTES ABSOLUTE 0.58 10/3/uL (0.21-1.20); NEUTROPHILS 79.1 %; NEUTROPHILS ABSOLUTE 5.57 10/3/uL (2.02-8.40); PLATELET COUNT 158 10/3/uL (150-400); RBC DISTRIBUTION WIDTH 15.7 % (12.0-16.0); RED CELL COUNT 3.49 10/6/uL (4.0-5.6); WHITE BLOOD CELLS 7.1 10/3/uL (4.5-10.5)
[2016-10-19] MEDS ORDERED: VITC500 PO (17:18)
[2016-10-19] MEDS ORDERED: CYANO1000T PO (17:18)
[2016-10-19] MEDS ORDERED: KDUR20 PO (17:19)
[2016-10-19] MEDS ORDERED: BACDS PO (17:19)
[2016-10-19] MEDS ORDERED: COUMADIN3 MG PO (17:19)
[2016-10-19] MEDS ORDERED: ULTRAM50 PO (17:20)
[2016-10-19] MEDS ORDERED: L40 PO (17:20)
[2016-10-19] MEDS ORDERED: NITROSTAT0.4 MG SL (17:20)
[2016-10-19] MEDS ORDERED: HALF81 PO (17:20)
[2016-10-19] MEDS ORDERED: INSNOV7030 SC (17:21)
[2016-10-19] MEDS ORDERED: GLUCOTRO10 PO (17:21)
[2016-10-19] MEDS ORDERED: LOP100 PO (17:21)
[2016-12-01] MEDS ORDERED: COUMADIN3 MG PO (16:58)
[2016-12-03] MEDS ORDERED: NORCO1 TA1 PO (16:58)
[2016-12-03] MEDS ORDERED: CIP2 PO (16:58)
== END 2016-08-24 14:41 | DRG 216 ==
LOC: SSUOP 06:35 → SSU1 06:40 → 6NO 08-11 13:45 → SDC/OF 08-14 12:26 → CVICU 08-14 13:31 → 5NO 08-18 11:25
PROVIDERS: Hospitalist; Internal Medicine; Internal Medicine Cardiovascular Disease; Internal Medicine Critical Care Medicine; Internal Medicine Pulmonary Disease; Nurse Practitioner Family; Thoracic Surgery (Cardiothoracic Vascular Surgery)
DX: I21.4 Non-ST elevation (NSTEMI) myocardial infarction (principal); J95.821 Acute postprocedural respiratory failure; N17.9 Acute kidney failure, unspecified; E87.0 Hyperosmolality and hypernatremia; I82.C11 Acute embolism and thrombosis of right internal jugular vein; N39.0 Urinary tract infection, site not specified; J98.11 Atelectasis; E11.9 Type 2 diabetes mellitus without complications; B95.2 Enterococcus as the cause of diseases classified elsewhere; I27.2 Other secondary pulmonary hypertension; I25.110 Atherosclerotic heart disease of native coronary artery with unstable angina pectoris; I35.0 Nonrheumatic aortic (valve) stenosis; E78.5 Hyperlipidemia, unspecified; E66.9 Obesity, unspecified; I25.2 Old myocardial infarction; Z68.35 Body mass index [BMI] 35.0-35.9, adult; Z90.49 Acquired absence of other specified parts of digestive tract; Z98.890 Other specified postprocedural states; Z88.8 Allergy status to other drugs, medicaments and biological substances; Z79.899 Other long term (current) drug therapy; Z79.82 Long term (current) use of aspirin; Z79.02 Long term (current) use of antithrombotics/antiplatelets; Z79.4 Long term (current) use of insulin; I48.91 Unspecified atrial fibrillation; K14.8 Other diseases of tongue; G47.33 Obstructive sleep apnea (adult) (pediatric); I12.9 Hypertensive chronic kidney disease with stage 1 through stage 4 chronic kidney disease, or unspecified chronic kidney disease; N18.3 Chronic kidney disease, stage 3 (moderate); F32.9 Major depressive disorder, single episode, unspecified; E78.00 Pure hypercholesterolemia, unspecified; Z99.81 Dependence on supplemental oxygen; Z87.442 Personal history of urinary calculi
CPT/HCPCS: 31720; 36415; 71010; 71020; 80048; 80053; 80061; 80069; 81001; 82330; 82803; 82805; 82947; 82962; 83036; 83540; 83550; 83735; 83935; 83970; 84100; 84132; 84295; 84300; 84439; 84443; 84484; 85014; 85018; 85025; 85049; 85347; 85384; 85576; 85576-59; 85610; 85730; 86022; 86850; 86900; 86901; 86920; 87070; 87077; 87086; 87186; 87205; 87641; 88305; 88311; 92610-GN; 93005; 93312; 93320; 93325; 93458; 93971; 94002; 94003; 94640; 94660; 94770; 96372; 97162-GP; 97530-GP; 99152; 99153; 99285; A9270-GY; C1713; C1751; C1769; C1887; C1894; C8929; C9113; G0378; J0282; J0360; J0690; J1630; J1644; J1940; J2150; J2250; J2370; J2405; J2440; J2720; J2795; J3010; J3475; J3480; P9045; P9047; Q9957; Q9967

== ENCOUNTER 2016-09-04 15:26 | Inpatient (IN) | payer BC ==
--- NOTE | ~2016-09-04 | HP ---
History And Physical [address] [address] NAME: TARAS BENJAMIN : 41 STATUS : ADM IN [facility]#: [id number] AGE: 71 ADM/REG DATE : 09/04/16 MR#: [id number] REPORT SERV DATE: 09/04/16 DICTATED BY: LUIS ENRIQUE SORIANO DATE: 09/04/16 REPORT STATUS : Draft TRANSCRIBED BY: MODJayson DATE: 09/04/16 DATE OF ADMISSION: 09/04/2016 CHIEF COMPLAINT: Right lower extremity cellulitis x7 days. HISTORY OF PRESENT ILLNESS: A 71-year-old white female with past medical history of coronary artery disease status post CABG secondary to [id number] NV, atrial fibrillation, diabetes type 2, current kidney disease stage 3, hyperlipidemia, hypertension, and history of pulmonary hypertension presenting with right lower extremity cellulitis x7 days. The patient was initially discharged on 08/25/2016. The patient underwent CABG by Dr. Weldon on 08/15/2016. The patient states she was doing rehab at [facility]. Apparently, she saw the nurse practitioner for Dr. Weldon on an outpatient approximately one week ago for checkup. The patient states that her sternum wound has been red and has a discharge as well as her right lower extremity, which also has been erythematous as well as edematous. The patient states that she was given antibiotics at [facility]. However, she noticed that her leg continues to worsen. She was given antibiotics, questionable doxycycline. Unfortunately, the patient was so concerned that despite her receiving her antibiotics, the patient continues to have a right lower extremity that is not improving. Other than the redness and sternal wound infection, the patient denies any fevers, chills, chest pain, shortness of breath, cough, or sputum. PAST MEDICAL HISTORY: As above. MEDICATIONS: The patient takes: 1. Amiodarone 200 mg p.o. daily. 2. Aspirin 81 mg daily. 3. Lipitor 40 mg p.o. daily. 4. Coreg 25 mg b.i.d. 5. Coumadin 2 mg p.o. daily. 6. Doxycycline 100 mg p.o. b.i.d. x10 days. 7. Lasix 20 mg p.o. daily. 8. Glipizide 1 mg p.o. b.i.d. 9. Humulin 70/30, 20 units subcu b.i.d. 10.Mupirocin 2% ointment apply to upper sternal incision every eight hours. 11.NovoLog FlexPen. 12.Multivitamin one tab daily. 13.Protein supplement p.o. b.i.d. 14.Senna two tabs p.o. b.i.d. 15.Potassium C 1000 mg p.o. b.i.d. ALLERGIES: LISINOPRIL AND PAXIL. SOCIAL HISTORY: Nonsmoker, nondrinker. FAMILY HISTORY: Significant for coronary artery disease, colon cancer, CVA, lung cancer. History And Physical [address] [address] NAME: TARAS BENJAMIN : 41 STATUS : ADM IN [facility]#: [id number] AGE: 71 ADM/REG DATE : 09/04/16 MR#: [id number] REPORT SERV DATE: 09/04/16 DICTATED BY: LUIS ENRIQUE SORIANO DATE: 09/04/16 REPORT STATUS : Draft TRANSCRIBED BY: CALIN DATE: 09/04/16 REVIEW OF SYSTEMS: A 10-point review of systems conducted, which were negative except for above complaints. PHYSICAL EXAMINATION: VITAL SIGNS: Temp of 98.2, pulse of 72, respiratory rate 20, BP 165/53, O2 saturation 95% on room air. HEAD AND NECK: Normocephalic and atraumatic. CARDIOVASCULAR: S1, S2. Regular rate and rhythm. There is a sternum wound status post CABG, there is some whitish discharged on the lower end/distal of the sternum. LUNGS: Good air entry. No wheeze, rales, or rhonchi. ABDOMEN: Soft, nontender, nondistended, obese. EXTREMITIES: No clubbing or cyanosis. Positive erythema, positive edema on right lower extremity. No discharge was appreciated. NEUROLOGICAL: Awake, alert, and oriented x3. Cranial nerves 2 through 12 grossly intact. LABORATORY DATA: Sodium 144, potassium 2.9, chloride 105, bicarb 35, BUN 25, creatinine 1.24, glucose 95, GFR 43, magnesium 1.9, calcium 8.0, troponin 0.03. Lactate 1.1. WBC 4.9, hemoglobin 9.9, hematocrit 31, and platelets 190. PTT 41.8, PT 20.0, INR 1.07. EKG shows wide QRS, right bundle-branch block. No gross ST elevation or depression. Rate at 66 beats per minute. Ultrasound, lower extremities, no right lower extremity venous DVT. There is a small amount of fluid tracking in the right greater saphenous vein site likely representing expected postop changes. Chest x-ray: Prior CABG. Otherwise, negative AP portable chest. ASSESSMENT AND PLAN: 1. Right lower extremity cellulitis and sternum wound. a. Blood culture x2 as well as wound culture. Also, start the patient on vancomycin for covering methicillin-resistant Staphylococcus aureus and also cefepime to cover Pseudomonas in the right lower extremity. We will also consult CT Surgery for further evaluation of the patient's sternal wound. 2. Atrial fibrillation. Continue Coumadin and amiodarone. Check PT/INR. 3. Diabetes type 2. Continue 70/30, 20 units subcu b.i.d. as well as sliding scale level 2. 4. Chronic kidney disease stage 3, currently stable. 5. Coronary artery disease, status post CABG, 08/14/2016. At this time, the patient is doing quite well regarding her coronary issues. However, her sternum wound site shows discharge at the distal end of the incision. We will try to culture the sternum and start the patient on vancomycin and cefepime. 6. Deep vein thrombosis prophylaxis. Continue Coumadin. FBJ/MODL History And Physical [address] [address] NAME: TARAS BENJAMIN : 41 STATUS : ADM IN [facility]#: [id number] AGE: 71 ADM/REG DATE : 09/04/16 MR#: [id number] REPORT SERV DATE: 09/04/16 DICTATED BY: LUIS ENRIQUE SORIANO DATE: 09/04/16 REPORT STATUS : Draft TRANSCRIBED BY: CALIN DATE: 09/04/16 Luis Enrique Soriano MD / [id number] CC: Jade Yeager M.D.
--- NOTE | ~2016-09-04 | DS ---
Discharge Summary [facility] [address] [place]. [address] NAME: TARAS BENJAMIN : 41 STATUS : DIS IN PAT#: [id number] AGE: 71 ADM/REG DATE : 09/04/16 MR#: [id number] REPORT SERV DATE: 09/10/16 DICTATED BY: JR. JAUREGUI WILLIAM JOHN DATE: 09/09/16 REPORT STATUS : Draft TRANSCRIBED BY: CALIN DATE: 09/09/16 ADMISSION DATE: 09/04/2016 DISCHARGE DATE: 09/09/2016 DISCHARGE DIAGNOSES: 1. Postop sternal inflammation. 2. Right lower extremity erythema, possibly cellulitis. 3. Atrial fibrillation. 4. Recent coronary artery bypass graft. 5. Chronic kidney disease. 6. Twd-omaxjzt-jopmalmxn diabetes mellitus type 2 with a hemoglobin A1c of 6.7. OPERATIONS/PROCEDURES AND TREATMENTS: Include: 1. Chest x-ray done 09/04/2016, which showed prior bypass. No other acute findings. 2. Venous Doppler ultrasound which showed no right lower extremity deep vein thrombosis. There was small amount of fluid tracking in the right saphenous vein graft harvest site likely representing expected postoperative changes. 3. Blood cultures x2 are negative. 4. Wound culture done 09/04/2016 grew Darlyn glabrata. DISCHARGE MEDICATIONS: Include: 1. Vitamin C 1000 mg orally twice a day. 2. Aspirin 81 mg orally daily. 3. Lipitor 40 mg orally daily. 4. Amiodarone 200 mg orally daily. 5. Coreg 25 mg orally twice a day. 6. Lasix 40 mg orally daily. 7. Glipizide 10 mg orally twice a day. 8. Mupirocin 2% ointment to the sternal area three times a day for seven days. 9. Multivitamin one tablet orally daily. 10.Potassium chloride 20 mEq daily. 11.Senna two tablets twice a day. 12.Coumadin 3 mg orally daily. 13.Keflex 500 mg orally twice a day for seven days. HOSPITAL COURSE: The patient was a 71-year-old female with a history of recent coronary artery bypass graft and non ST-elevation myocardial infarction who presented to the emergency room 09/04/2016 from [facility] where she was sent for right lower extremity cellulitis. The patient had apparently seen Dr. Weldon's nurse practitioner one week prior and stated that her sternal wound had been red with some discharge. The patient was given what I believe to be doxycycline, however, with limited improvement, was sent to [facility]. On initial exam at [facility], her temperature was 98.2, heart rate 72, respiratory rate 20, and blood pressure 165/73. The exam did show erythema of the right lower extremity without discharge, scant discharge at lower distal sternal wound. Initial laboratory was significant for a potassium of 2.9, BUN 25, creatinine 1.3. White blood count was normal at 4.9. EKG had a right bundle branch block, otherwise, unremarkable. Ultrasound as detailed Discharge Summary [facility] [address] [facility] [place]. [address] NAME: TARAS BENJAMIN : 41 STATUS : DIS IN PAT#: [id number] AGE: 71 ADM/REG DATE : 09/04/16 MR#: [id number] REPORT SERV DATE: 09/10/16 DICTATED BY: JR. JAUREGUI WILLIAM JOHN DATE: 09/09/16 REPORT STATUS : Draft TRANSCRIBED BY: CALIN DATE: 09/09/16 above. The patient was admitted to the hospital for possible cellulitis. Of note, she never had fever or leukocytosis nor shift. She was initially placed on cefepime and vancomycin, which she continued on through 09/08/2016 when her cefepime was discontinued. She was seen and evaluated by Dr. Weldon's team who felt this did not represent infection but rather normal postoperative changes. The sternal wound was treated with mupirocin. By discharge, the sternal wound was nearly completely without erythema of the right distal leg, continued to have some erythema, and ultrasound was done and was negative for clot. Given the possibility of cellulitis, the patient was discharged with Keflex 500 mg orally twice a day for seven additional days. The remainder of the patient's health problems were stable during this hospitalization and were not addressed. DISCHARGED DIET: ADA. DISCHARGE ACTIVITY: As tolerated. For discharge exam and laboratory, please see daily progress note. Followup with primary care provider, Dr. Evans in [place] in one week with an INR and BMP. We will follow up with Dr. Crane of Cardiology in one month and Dr. Weldon's team as needed. FOLLOWUP ISSUES: Coumadin monitoring. Would recommend a followup INR in one week. This discharge took 40 minutes for patient encounter, coordination of care, and documentation. LINO/CALIN Yasir Jauregui Jr, MD / [id number] CC: Yasir Jauregui Jr, MD Dr. Dibrell
[2016-09-04 15:08] LABS: BASOPHILS 0.4 %; BASOPHILS ABSOLUTE 0.02 10/3/uL (0.0-0.16); EOSINOPHILS 2.9 %; EOSINOPHILS ABSOLUTE 0.14 10/3/uL (0.0-0.53); ER CBC TAT 0 Hrs 13 Mins; HEMATOCRIT 31.7 % (36.0-48.0); HEMOGLOBIN 9.9 g/dL (12.0-16.0); IMMATURE GRANULOCYTES 0.2 %; IMMATURE GRANULOCYTES ABSOLUTE 0.01 10/3/uL (0.0-0.11); LYMPHOCYTES 24.8 %; LYMPHOCYTES ABSOLUTE 1.21 10/3/uL (0.67-4.30); MEAN CORPUS HGB CONC 31.2 g/dL (32.0-36.0); MEAN CORPUSCULAR VOLUME 83.2 fL (80-100); MEAN PLATELET VOLUME 10.1 fL (9.2-13.0); MONOCYTES 10.1 %; MONOCYTES ABSOLUTE 0.49 10/3/uL (0.21-1.20); NEUTROPHILS 61.6 %; PLATELET COUNT 190 10/3/uL (150-400); RBC DISTRIBUTION WIDTH 15.5 % (12.0-16.0); RED CELL COUNT 3.81 10/6/uL (4.0-5.6); WHITE BLOOD CELLS 4.9 10/3/uL (4.5-10.5)
[2016-09-04 15:10] LABS: MANUAL DIFF NO %
[2016-09-04 15:15] LABS: INTERNATIONAL NORMAL RATI 1.7 UNITS (-); PARTIAL THROMBO TIME 41.8 SEC (22.5-37.2)
[2016-09-04 15:29] LABS: CHLORIDE, SERUM 105 MMOL/L (96-112); CREATININE 1.24 MG/DL (0.55-1.02); GFR AFRICAN AMERICAN 50 ML/MIN (>=60); GFR NON AFRICAN AMERICAN 43 ML/MIN (>=60); SODIUM, SERUM 144 MMOL/L (135-148); TROPONIN I 0.03 NG/ML (<0.05)
[2016-09-04 15:31] LABS: BUN (BLOOD UREA NITROGEN) 25 MG/DL (6-23); CO2 (CARBON DIOXIDE) 35 MMOL/L (24-34); GLUCOSE, SERUM 95 MG/DL (60-99); POTASSIUM, SERUM 2.9 MMOL/L (3.5-5.3)
[2016-09-04 15:32] LABS: CHEST PAIN PROFILE TAT 0 Hrs 34 Mins
[2016-09-04] MEDS ORDERED: CORDARONE PO (17:30)
[2016-09-04] MEDS ORDERED: LIPITOR40 PO (17:31)
[2016-09-04] MEDS ORDERED: HALF81 PO (17:31)
[2016-09-04] MEDS ORDERED: COREG25 PO (17:32)
[2016-09-04] MEDS ORDERED: L20 PO (17:32)
[2016-09-04] MEDS ORDERED: MONODOX100 MG PO (17:32)
[2016-09-04] MEDS ORDERED: C2 PO (17:32)
[2016-09-04] MEDS ORDERED: HUMULIN SC (17:33)
[2016-09-04] MEDS ORDERED: GLUCOTRO10 PO (17:33)
[2016-09-04] MEDS ORDERED: CENTRUM PO (17:36)
[2016-09-04] MEDS ORDERED: SENTAB PO (17:36)
[2016-09-04] MEDS ORDERED: NOVOLOG SC (17:36)
[2016-09-04] MEDS ORDERED: BACTROINT TOP (17:36)
[2016-09-04] MEDS ORDERED: VITC500 PO (17:37)
[2016-09-04] MEDS ORDERED: BISR PR (17:37)
[2016-09-04] MEDS ORDERED: FLEETS ENEMA PR (17:38)
[2016-09-04] MEDS ORDERED: GLUCOSE TAB PO (17:39)
[2016-09-04] MEDS ORDERED: MOMUD PO (17:40)
[2016-09-04] MEDS ORDERED: GLUCOSE GEL PO (17:40)
[2016-09-04] MEDS ORDERED: NITROSTAT0.4 MG SL (17:41)
[2016-09-04 22:13] LABS: CHOL/HDL RATIO(NOT ORDER) 2.8 (0-5); CHOLESTEROL 77 MG/DL (< 200); HDL CHOLESTEROL 28 MG/DL (> 49); LDL CHOLESTEROL 9 MG/DL (< 130); NON-HDL CHOLESTEROL 49 MG/DL (< 160); TRIGLYCERIDE 204 MG/DL (< 150)
[2016-09-05 05:08] LABS: BASOPHILS 0.2 %; BASOPHILS ABSOLUTE 0.01 10/3/uL (0.0-0.16); EOSINOPHILS 2.3 %; EOSINOPHILS ABSOLUTE 0.11 10/3/uL (0.0-0.53); HEMATOCRIT 30.1 % (36.0-48.0); HEMOGLOBIN 9.5 g/dL (12.0-16.0); IMMATURE GRANULOCYTES 0.2 %; IMMATURE GRANULOCYTES ABSOLUTE 0.01 10/3/uL (0.0-0.11); LYMPHOCYTES 23.6 %; LYMPHOCYTES ABSOLUTE 1.13 10/3/uL (0.67-4.30); MEAN CORPUS HGB CONC 31.6 g/dL (32.0-36.0); MEAN CORPUSCULAR HEMOGLOB 26.4 pg (26.0-34.0); MEAN CORPUSCULAR VOLUME 83.6 fL (80-100); MEAN PLATELET VOLUME 10.7 fL (9.2-13.0); MONOCYTES 8.6 %; MONOCYTES ABSOLUTE 0.41 10/3/uL (0.21-1.20); NEUTROPHILS 65.1 %; NEUTROPHILS ABSOLUTE 3.12 10/3/uL (2.02-8.40); PLATELET COUNT 169 10/3/uL (150-400); RBC DISTRIBUTION WIDTH 15.5 % (12.0-16.0); WHITE BLOOD CELLS 4.8 10/3/uL (4.5-10.5)
[2016-09-05 05:18] LABS: MANUAL DIFF NO %
[2016-09-05 05:26] LABS: CALCIUM, SERUM 7.9 MG/DL (8.5-10.4); CHLORIDE, SERUM 108 MMOL/L (96-112); CREATININE 1.04 MG/DL (0.55-1.02); GFR AFRICAN AMERICAN 62 ML/MIN (>=60); GFR NON AFRICAN AMERICAN 53 ML/MIN (>=60); SGOT(AST) 19 U/L (5-40); SGPT(ALT) 23 U/L (5-65); SODIUM, SERUM 147 MMOL/L (135-148); TOTAL BILIRUBIN 0.4 MG/DL (0-1.2); TOTAL PROTEIN 5.3 G/DL (6.0-8.5)
[2016-09-05 05:28] LABS: A/G RATIO 0.7 (0.7-1.9); ALBUMIN 2.2 G/DL (3.5-5.0); ALKALINE PHOSPHATASE 98 U/L (45-117); BUN (BLOOD UREA NITROGEN) 21 MG/DL (6-23); CO2 (CARBON DIOXIDE) 28 MMOL/L (24-34); GLOBULIN 3.1 G/DL (2.5-4.1); GLUCOSE, SERUM 188 MG/DL (60-99); POTASSIUM, SERUM 2.9 MMOL/L (3.5-5.3)
[2016-09-05 06:37] LABS: ASCORBIC ACID (UR NOT ORDER) 40 (NEG); BILIRUBIN, URINE NEGATIVE (NEG); KETONE, URINE NEGATIVE (NEG); LEUKOCYTE ESTERASE(NOT OR NEG (NEG); WBC (NOT ORDERED) (RFLEX) 1 (0-5)
[2016-09-06 04:51] LABS: BASOPHILS 0.3 %; BASOPHILS ABSOLUTE 0.01 10/3/uL (0.0-0.16); EOSINOPHILS 3.1 %; EOSINOPHILS ABSOLUTE 0.12 10/3/uL (0.0-0.53); IMMATURE GRANULOCYTES 0.3 %; IMMATURE GRANULOCYTES ABSOLUTE 0.01 10/3/uL (0.0-0.11); LYMPHOCYTES 29.9 %; LYMPHOCYTES ABSOLUTE 1.15 10/3/uL (0.67-4.30); MEAN CORPUS HGB CONC 31.3 g/dL (32.0-36.0); MEAN CORPUSCULAR HEMOGLOB 26.2 pg (26.0-34.0); MEAN PLATELET VOLUME 10.3 fL (9.2-13.0); MONOCYTES 9.4 %; MONOCYTES ABSOLUTE 0.36 10/3/uL (0.21-1.20); NEUTROPHILS ABSOLUTE 2.19 10/3/uL (2.02-8.40); PLATELET COUNT 173 10/3/uL (150-400); RBC DISTRIBUTION WIDTH 15.6 % (12.0-16.0); RED CELL COUNT 3.81 10/6/uL (4.0-5.6); WHITE BLOOD CELLS 3.8 10/3/uL (4.5-10.5)
[2016-09-06 04:54] LABS: INTERNATIONAL NORMAL RATI 1.8 UNITS (-); PROTIME (NOT ORD) 20.7 SEC (12.0-14.5)
[2016-09-06 04:55] LABS: MANUAL DIFF NO %
[2016-09-06 05:03] LABS: ALBUMIN 2.3 G/DL (3.5-5.0); BUN (BLOOD UREA NITROGEN) 19 MG/DL (6-23); CALCIUM, SERUM 8.7 MG/DL (8.5-10.4); CHLORIDE, SERUM 111 MMOL/L (96-112); CO2 (CARBON DIOXIDE) 28 MMOL/L (24-34); CREATININE 1.17 MG/DL (0.55-1.02); GFR AFRICAN AMERICAN 54 ML/MIN (>=60); GFR NON AFRICAN AMERICAN 46 ML/MIN (>=60); GLUCOSE, SERUM 171 MG/DL (60-99); PHOSPHORUS, SERUM 2.6 MG/DL (2.5-4.5); SODIUM, SERUM 144 MMOL/L (135-148)
[2016-09-07 04:23] LABS: INTERNATIONAL NORMAL RATI 1.9 UNITS (-); PROTIME (NOT ORD) 21.6 SEC (12.0-14.5)
[2016-09-07 04:33] LABS: BUN (BLOOD UREA NITROGEN) 26 MG/DL (6-23); CALCIUM, SERUM 8.3 MG/DL (8.5-10.4); CHLORIDE, SERUM 107 MMOL/L (96-112); CO2 (CARBON DIOXIDE) 26 MMOL/L (24-34); CREATININE 1.51 MG/DL (0.55-1.02); GFR AFRICAN AMERICAN 39 ML/MIN (>=60); GFR NON AFRICAN AMERICAN 34 ML/MIN (>=60); GLUCOSE, SERUM 137 MG/DL (60-99); POTASSIUM, SERUM 3.9 MMOL/L (3.5-5.3); SODIUM, SERUM 144 MMOL/L (135-148)
[2016-09-08 06:43] LABS: BASOPHILS 0.3 %; BASOPHILS ABSOLUTE 0.01 10/3/uL (0.0-0.16); EOSINOPHILS ABSOLUTE 0.15 10/3/uL (0.0-0.53); HEMATOCRIT 31.2 % (36.0-48.0); HEMOGLOBIN 9.8 g/dL (12.0-16.0); LYMPHOCYTES 32.5 %; LYMPHOCYTES ABSOLUTE 1.23 10/3/uL (0.67-4.30); MANUAL DIFF NO %; MEAN CORPUS HGB CONC 31.4 g/dL (32.0-36.0); MEAN CORPUSCULAR HEMOGLOB 26.1 pg (26.0-34.0); MEAN PLATELET VOLUME 11.1 fL (9.2-13.0); MONOCYTES 11.6 %; MONOCYTES ABSOLUTE 0.44 10/3/uL (0.21-1.20); NEUTROPHILS 51.6 %; NEUTROPHILS ABSOLUTE 1.96 10/3/uL (2.02-8.40); PLATELET COUNT 148 10/3/uL (150-400); RBC DISTRIBUTION WIDTH 15.1 % (12.0-16.0); RED CELL COUNT 3.76 10/6/uL (4.0-5.6); WHITE BLOOD CELLS 3.8 10/3/uL (4.5-10.5)
[2016-09-08 06:51] LABS: INTERNATIONAL NORMAL RATI 2.1 UNITS (-); PROTIME (NOT ORD) 23.2 SEC (12.0-14.5)
[2016-09-08 06:53] LABS: BUN (BLOOD UREA NITROGEN) 30 MG/DL (6-23); CALCIUM, SERUM 8.6 MG/DL (8.5-10.4); CHLORIDE, SERUM 105 MMOL/L (96-112); CO2 (CARBON DIOXIDE) 30 MMOL/L (24-34); CREATININE 1.37 MG/DL (0.55-1.02); GFR AFRICAN AMERICAN 44 ML/MIN (>=60); GFR NON AFRICAN AMERICAN 38 ML/MIN (>=60); GLUCOSE, SERUM 120 MG/DL (60-99); POTASSIUM, SERUM 3.9 MMOL/L (3.5-5.3); SODIUM, SERUM 143 MMOL/L (135-148)
[2016-09-09 04:31] LABS: BASOPHILS 0.4 %; BASOPHILS ABSOLUTE 0.02 10/3/uL (0.0-0.16); EOSINOPHILS 4.2 %; HEMATOCRIT 32.8 % (36.0-48.0); HEMOGLOBIN 10.3 g/dL (12.0-16.0); IMMATURE GRANULOCYTES 0.2 %; IMMATURE GRANULOCYTES ABSOLUTE 0.01 10/3/uL (0.0-0.11); LYMPHOCYTES 31.4 %; LYMPHOCYTES ABSOLUTE 1.49 10/3/uL (0.67-4.30); MEAN CORPUS HGB CONC 31.4 g/dL (32.0-36.0); MEAN CORPUSCULAR HEMOGLOB 26.1 pg (26.0-34.0); MEAN CORPUSCULAR VOLUME 83.2 fL (80-100); MEAN PLATELET VOLUME 10.9 fL (9.2-13.0); MONOCYTES 13.3 %; MONOCYTES ABSOLUTE 0.63 10/3/uL (0.21-1.20); NEUTROPHILS 50.5 %; NEUTROPHILS ABSOLUTE 2.39 10/3/uL (2.02-8.40); PLATELET COUNT 180 10/3/uL (150-400); RBC DISTRIBUTION WIDTH 15.2 % (12.0-16.0); RED CELL COUNT 3.94 10/6/uL (4.0-5.6); WHITE BLOOD CELLS 4.7 10/3/uL (4.5-10.5)
[2016-09-09 04:39] LABS: MANUAL DIFF NO %; PROTIME (NOT ORD) 22.1 SEC (12.0-14.5)
[2016-09-09 04:48] LABS: CALCIUM, SERUM 9.3 MG/DL (8.5-10.4); CHLORIDE, SERUM 103 MMOL/L (96-112); CO2 (CARBON DIOXIDE) 32 MMOL/L (24-34); CREATININE 1.58 MG/DL (0.55-1.02); GFR AFRICAN AMERICAN 37 ML/MIN (>=60); GFR NON AFRICAN AMERICAN 32 ML/MIN (>=60); POTASSIUM, SERUM 4.2 MMOL/L (3.5-5.3); SODIUM, SERUM 141 MMOL/L (135-148)
[2016-09-09 04:49] LABS: BUN (BLOOD UREA NITROGEN) 38 MG/DL (6-23); GLUCOSE, SERUM 167 MG/DL (60-99)
[2016-09-09] MEDS ORDERED: KLOR-CON20 MEQ PO (13:55)
[2016-09-09] MEDS ORDERED: COUMADIN3 MG PO (13:56)
[2016-09-09] MEDS ORDERED: K500 PO (13:59)
[2016-10-19] MEDS ORDERED: CYANO1000T PO (17:18)
[2016-10-19] MEDS ORDERED: VITC500 PO (17:18)
[2016-10-19] MEDS ORDERED: KDUR20 PO (17:19)
[2016-10-19] MEDS ORDERED: BACDS PO (17:19)
[2016-10-19] MEDS ORDERED: COUMADIN3 MG PO (17:19)
[2016-10-19] MEDS ORDERED: NITROSTAT0.4 MG SL (17:20)
[2016-10-19] MEDS ORDERED: HALF81 PO (17:20)
[2016-10-19] MEDS ORDERED: ULTRAM50 PO (17:20)
[2016-10-19] MEDS ORDERED: L40 PO (17:20)
[2016-10-19] MEDS ORDERED: LOP100 PO (17:21)
[2016-10-19] MEDS ORDERED: INSNOV7030 SC (17:21)
[2016-10-19] MEDS ORDERED: GLUCOTRO10 PO (17:21)
[2016-12-01] MEDS ORDERED: COUMADIN3 MG PO (16:58)
[2016-12-03] MEDS ORDERED: NORCO1 TA1 PO (16:58)
[2016-12-03] MEDS ORDERED: CIP2 PO (16:58)
== END 2016-09-09 15:35 | disposition home or self-care (01) | DRG 862 ==
LOC: ER 15:26 → 5NO 18:18
PROVIDERS: Hospitalist; Internal Medicine; Nurse Practitioner Family
DX: T81.4XXA Infection following a procedure, initial encounter (principal); I21.4 Non-ST elevation (NSTEMI) myocardial infarction; E11.22 Type 2 diabetes mellitus with diabetic chronic kidney disease; L03.115 Cellulitis of right lower limb; I97.89 Other postprocedural complications and disorders of the circulatory system, not elsewhere classified; I27.2 Other secondary pulmonary hypertension; I25.10 Atherosclerotic heart disease of native coronary artery without angina pectoris; Z95.1 Presence of aortocoronary bypass graft; I25.2 Old myocardial infarction; N18.3 Chronic kidney disease, stage 3 (moderate); E78.5 Hyperlipidemia, unspecified; I12.9 Hypertensive chronic kidney disease with stage 1 through stage 4 chronic kidney disease, or unspecified chronic kidney disease; Z79.4 Long term (current) use of insulin
CPT/HCPCS: 71010; 80048; 80053; 80061; 80069; 80202; 81001; 82962; 83036; 83605; 83735; 84100; 84132; 84484; 85025; 85610; 85730; 87040; 87070; 87205; 93005; 93971; 96365; 99285; A9270-GY; J0692; J3370; J3475